=== PATIENT | female | born 1930 | race Two or more races ===

== ENCOUNTER 2017-11-17 08:55 | Outpatient (CLI) | payer OTHER ==
[~2017-11-17 08:55] MED LIST: CATAFLAM50 MG; COZAAR25 MG; DICLOFENAC POTA50 MG PO; PROTONIX20 MG; REGLAN5 MG/5 ML; SENNA8.6 M1; SIMVASTATIN20 MG; SYNTHROID75 MCG; ULTRACET PO
== END 2017-11-17 09:01 | disposition home or self-care (01) ==
LOC: SONOGRAMA 08:55 → MAMO-SONO 09:45
DX: M75.101 Unspecified rotator cuff tear or rupture of right shoulder, not specified as traumatic (principal)

== ENCOUNTER 2018-12-04 12:41 | Emergency (ER) | payer OTHER ==
[~2018-12-04] VITALS: Ht 167.6 cm; Wt 82.1 kg
== END 2018-12-04 16:11 | disposition home or self-care (01) ==
LOC: ER 12:41
DX: K29.60 Other gastritis without bleeding (principal)

== ENCOUNTER 2018-12-26 07:48 | Outpatient (CLI) | payer OTHER | END 2018-12-26 07:52 | disposition home or self-care (01) | LOC: TOM 07:48 | DX: R93.3 Abnormal findings on diagnostic imaging of other parts of digestive tract (principal) | CPT/HCPCS: 74170; Q9965 ==

== ENCOUNTER 2019-05-27 13:12 | Emergency (ER) | payer OTHER ==
[~2019-05-27] VITALS: Ht 162.6 cm; Wt 77.1 kg
[2019-05-27] MEDS ORDERED: EXELON1 EAC1 TD (13:25)
[2019-05-27] MEDS ORDERED: ARICEPT10 MG PO (13:26)
== END 2019-05-27 17:30 | disposition home or self-care (01) ==
LOC: ER 13:12
DX: R42 Dizziness and giddiness (principal); R53.1 Weakness

== ENCOUNTER 2019-07-04 07:15 | Outpatient (CLI) | payer OTHER ==
[~2019-07-04 07:15] MED LIST changes: +ARICEPT10 MG PO; +EXELON1 EAC1 TD
== END 2019-07-04 08:35 | disposition home or self-care (01) ==
LOC: SONOGRAMA 07:15 → MAMO-SONO 07:30 → SONOGRAMA 08:35
DX: R94.5 Abnormal results of liver function studies (principal)

== ENCOUNTER 2019-07-04 08:11 | Emergency (ER) | payer OTHER ==
[~2019-07-04] VITALS: Ht 167.6 cm; Wt 78.9 kg
== END 2019-07-04 12:05 | disposition home or self-care (01) ==
LOC: ER 08:11
DX: K29.00 Acute gastritis without bleeding (principal)

== ENCOUNTER 2019-09-25 07:07 | Outpatient (CLI) | payer OTHER | END 2019-09-25 07:15 | disposition home or self-care (01) | LOC: SONOGRAMA 07:07 → MAMO-SONO 07:15 → SONOGRAMA 07:15 | DX: N18.2 Chronic kidney disease, stage 2 (mild) (principal) ==